=== PATIENT | male | born 1990 | race Caucasian/White ===

== ENCOUNTER 2018-04-02 14:48 | Emergency (ER) | payer SELFPAY ==
[~2018-04-02] VITALS: Ht 170.2 cm; Wt 76.5 kg
[~2018-04-02 14:48] MED LIST: CITALOPRAM HBR20 MG PO; NON
[2018-04-02 17:22] LABS: HEMATOCRIT 47.4 % (38.0-50.0); HEMOGLOBIN 17.2 G/DL (12.5-16.6); MCH 30.9 PG (29.0-34.0); MCHC 36.3 G/DL (30.0-36.0); MCV 85.1 FL (86-99); PLATELET COUNT 176 K/uL (156-360); RBC DIS.WIDTH-CV 11.8 % (11.8-14.6); RBC DIS.WIDTH-SD 36.4 % (39-53); RED BLOOD COUNT 5.57 M/uL (4.00-5.50); WHITE BLOOD COUNT 7.4 K/uL (4.1-10.2)
[2018-04-02 17:24] LABS: ALBUMIN 4.4 g/dL (3.2-4.8)
[2018-04-02 17:25] LABS: CHLORIDE 102 mEq/L (99-109); POTASSIUM 3.8 mEq/L (3.7-5.4); SODIUM 137 mEq/L (136-147)
[2018-04-02 17:27] LABS: GLUCOSE 105 mg/dL (70-99); TOTAL PROTEIN 7.7 g/dL (6.4-8.3)
[2018-04-02 17:29] LABS: TOTAL BILIRUBIN 1.2 mg/dL (0.0-1.0)
[2018-04-02 17:30] LABS: ALKALINE PHOSPHATASE 86 IU/L (3-129)
[2018-04-02 17:31] LABS: CREATININE 1.5 mg/dL (0.6-1.3); GFR ESTIMATE (CALCULATED) > 59 mL/min/ (58.99-99999)
[2018-04-02 17:32] LABS: AST (GOT) 19 IU/L (2-34); UREA NITROGEN (BUN) 16 mg/dL (9-23)
[2018-04-02 17:34] LABS: ALT (GPT) 25 IU/L (3-49); LIPASE 27 U/L (1.0-51.0)
[2018-04-02 18:47] LABS: APPEARANCE SL.HAZY ((CLEAR)); BILIRUBIN SMALL; BLOOD NEGATIVE; COLOR AMBER ((YELLOW)); GLUCOSE (STRIP) NEGATIVE; KETONES NEGATIVE; LEUKOCYTES NEGATIVE; NITRITE NEGATIVE; PROTEIN (STRIP) 100; SPECIFIC GRAVITY 1.034 (1.000-1.030)
[2018-04-02 19:00] LABS: BACTERIA NONE SEEN /HPF; EPITHELIAL CELLS RARE /HPF; HYALINE CASTS 0-5 /LPF; MUCUS 2+ /LPF; RED BLOOD CELLS 0-5 /HPF (0-5); UCUL ADDED? NO; WHITE BLOOD CELLS 0-5 /HPF (0-5)
[2018-04-02 19:10] LABS: MONOSPOT (MONONUCLEOSIS SEROL) NEGATIVE
[2018-04-02 19:34] VITALS: BP 126/69
== END 2018-04-02 19:35 | disposition home or self-care (01) ==
LOC: EME 14:48
PROVIDERS: Nurse Practitioner Family
DX: B34.9 Viral infection, unspecified (principal); E86.0 Dehydration; R50.9 Fever, unspecified; F90.9 Attention-deficit hyperactivity disorder, unspecified type; F41.9 Anxiety disorder, unspecified; F17.200 Nicotine dependence, unspecified, uncomplicated
CPT/HCPCS: 71046; 80053; 81003; 83690; 85027; 86308; 87502; 99281; 99284